=== PATIENT | male | born 1965 | race Caucasian/White ===

== ENCOUNTER → 2017-06-11 | Outpatient (CLI) | payer BC ==
[~2017-06-11] MED LIST: IOPAMIDOL (ISOVUE-300) 100 ML BTL ONE
== END ==
LOC: FIMAGING 11:02
PROVIDERS: ATTEND Family Medicine
DX: R16.1 Splenomegaly, not elsewhere classified (principal); D73.89 Other diseases of spleen; N20.0 Calculus of kidney
CPT/HCPCS: Q9967

== ENCOUNTER → 2017-06-18 | Outpatient (CLI) | payer BC | LOC: BMCIMAGING 11:27 | PROVIDERS: ATTEND Family Medicine | DX: R61 Generalized hyperhidrosis (principal); R53.81 Other malaise ==

== ENCOUNTER 2017-06-30 06:50 | Day surgery (SDC) | payer BC, OTHER ==
[2017-06-30] MEDS ORDERED: LIDOCAINE 1% 2 ML INJ ID PRN (07:06)
[2017-06-30] MEDS ORDERED: LR 1,000 ML IV ONE (07:06)
[2017-06-30] MEDS ORDERED: LIDOCAINE 1% 2 ML INJ ONE (07:08)
--- NOTE | 2017-06-30 08:13 | PDANEPAE ---
ANE History of Present Illness 52 yo M w non Hodgkins Lymphona here for chemo port placement ANE Past Medical History - Cardiovascular History Hx Hypertension: No Hx Arrhythmias: No Hx Chest Pain: No Hx Coronary Artery / Peripheral Vascular Disease: No Hx CHF / Valvular Disease: No Hx Palpitations: No Cardiovascular History Comment: HYPERLIPIDEMIA - Pulmonary History Hx COPD: No Hx Asthma/Reactive Airway Disease: Yes Hx Recent Upper Respiratory Infection: No Hx Oxygen in Use at Home: No Hx Sleep Apnea: Yes Sleep Apnea Screening Result - Last Documented: Positive Pulmonary History Comment: SLEEP APNEA POS W/CPAP - Neurologic History Hx Cerebrovascular Accident: No Hx Seizures: No Hx Dementia: No - Endocrine History Hx Diabetes: No - Renal History Hx Renal Disorders: No - Liver History Hx Hepatic Disorders: No - Neurological & Psychiatric Hx Hx Neurological and Psychiatric Disorders: No - Cancer History Hx Cancer: No Cancer History Comment: LYMPHOMA - Congenital Disorder History Hx Congenital Disorders: No - GI History Hx Gastrointestinal Disorders: Yes Gastrointestinal History Comment: EOSINOPHILIC ESOPHAGITIS - Other Health History Other Health History: GOUT - Chronic Pain History Chronic Pain: No - Surgical History Prior Surgeries: R SHOULDER. NASAL SURG ANE Review of Systems - Exercise capacity METS (RN): 4 METS ANE Patient History - Allergies Allergies/Adverse Reactions: Penicillins Allergy (Intermediate, Verified 12/11/15 00:18) - Home Medications Home Medications: ESCITALOPRAM OXALATE [Lexapro] 10 mg PO 03/17/11 [Last Taken Unknown] Fluticasone/Salmeter 250/50Mcg [Advair 250/50] 1 inh IH BID 03/17/11 [Last Taken Unknown] Allopurinol 06/29/17 [Last Taken Unknown] Atorvastatin Calcium 06/29/17 [Last Taken Unknown] Omeprazole 06/29/17 [Last Taken Unknown] Theophylline 06/29/17 [Last Taken Unknown] - NPO status NPO Status: no food or drink >8 hours NPO Since - Liquids (Date): 06/30/17 NPO Since - Liquids (Time): 05:30 NPO Since - Solids (Date): 06/29/17 - Anes Hx Anes Hx: no prior problems - Smoking Hx Smoking Status: Never smoked - Alcohol Use Alcohol Use: Rarely - Family Anes Hx Family Anes Hx: none Family Hx Anesthesia Complications: NEG ANE Labs/Vital Signs - Vital Signs Blood Pressure: 122/84 Heart Rate: 62 Respiratory Rate: 16 O2 Sat (%): 93 Height: 193.04 cm Weight: 97.522 kg ANE Physical Exam - Airway Neck exam: FROM Mallampati Score: Class 2 Mouth exam: normal dental/mouth exam - Pulmonary Pulmonary: no respiratory distress, clear to auscultation - Cardiovascular Cardiovascular: regular rate and rhythym, no murmur, rub, or gallop - ASA Status ASA Status: III ANE Anesthesia Plan Anesthesia Plan: GA w LMA
[2017-06-30] MEDS ORDERED: MIDAZOLAM 2 MG/2 ML VIAL IVP ONE (08:14)
[2017-06-30] MEDS ORDERED: BUPIVACAINE 0.5% 30 ML SDV ONE (08:27)
[2017-06-30] MEDS ORDERED: fentaNYL 100 MCG/2 ML INJ ONE ×2 (08:37→10:07)
[2017-06-30] MEDS ORDERED: LIDOCAINE 2% 100 MG/5 ML SYR ONE (08:37)
[2017-06-30] MEDS ORDERED: PROPOFOL 200 MG/20 ML VIAL ONE ×2 (08:37)
[2017-06-30] MEDS ORDERED: ceFAZolin 2 GM/DEXTROSE 100 ML IV ONE (08:38)
--- NOTE | 2017-06-30 08:44 | PDGENHP ---
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 Fatigue Pertinent Past, Social, Family History: gout, asthma, hyperlipidemia, sleep apnea, esophagitis. family history brother anticardiolipin antibody. social history - with a child age 4. No tobacco. Works in advertisiting Relevant Physical Exam: Pleasant well groom well nourished. NCAT, PER, No scleral icterus, mucous membranes moist,. Scar Left neck. CTAB no increased work of breathing. Regular rate. Will do port on right side. Risks, infection , bleeding, pneumothorax
--- NOTE | 2017-06-30 08:52 | POSTOPPROG ---
Post Op Note Date of Operation: 06/30/17 Surgeon: Clari Alberts Anesthesiologist: andrés Pre-op Diagnosis: Lymphoma Post-op Diagnosis: Lymphoma Indication: 52-year-old with lymphoma will start chemotherapy tomorrow Procedure: Right ultrasound-guided IJ port Inf/Abcess present in the surg proc area at time of surgery?: No EBL: Minimal Specimen(s): None
[2017-06-30] MEDS ORDERED: DEXAMETHASONE 4 MG/ML VIAL ONE (09:23)
[2017-06-30] MEDS ORDERED: ONDANSETRON 4 MG/2 ML VIAL ONE (09:23)
[2017-06-30] MEDS ORDERED: ACETAMINOPHEN 500 MG TAB PO PRN (09:50)
[2017-06-30] MEDS ORDERED: NALOXONE HCL 0.4 MG/ML INJ IVP PRN (09:50)
[2017-06-30] MEDS ORDERED: OXYCODONE/APAP 5/325 TAB PO PRN (09:50)
[2017-06-30] MEDS: fentaNYL 100 MCG/2 ML INJ IVP PRN ×3 (10:12→11:09)
[2017-06-30] MEDS ORDERED: OXYCODONE/APAP 5/325 TAB ONE (11:06)
[2017-06-30 11:19] VITALS: TEMP 97.9
[2017-06-30 11:24] VITALS: BP 123/83; PULSE 79; RESP 13; O2SAT 96
--- NOTE | 2017-06-30 21:13 | POSTANESTH ---
Post Anesthetic Evaluation Cardiovascular Status: Normal, Stable, Similar to Pre-Op Cond Respiratory Status: Normal, Stable, Similar to Pre-op Cond. Level of Consciousness/Mental Status: Can Participate in Eval, Alert and Oriented Pain Control: Adequate, Prn Tx Ordered Nausea/Vomiting Control: Adequate, Prn Tx Ordered Complications Possibly Related to Anesthesia: None Noted
== END 2017-06-30 11:40 | disposition home or self-care (01) ==
LOC: FSGY 06:50
PROVIDERS: ATTEND Surgery
DX: Z45.2 Encounter for adjustment and management of vascular access device (principal); C85.90 Non-Hodgkin lymphoma, unspecified, unspecified site; J45.909 Unspecified asthma, uncomplicated; G47.30 Sleep apnea, unspecified; E78.5 Hyperlipidemia, unspecified; Z88.0 Allergy status to penicillin
CPT/HCPCS: C1788; J0690; J1100; J1642; J2001; J2250; J2405; J2704; J3010

== ENCOUNTER → 2017-07-25 | Outpatient (CLI) | payer BC | LOC: FIMAGING 15:49 | PROVIDERS: ATTEND Family Medicine | DX: K40.90 Unilateral inguinal hernia, without obstruction or gangrene, not specified as recurrent (principal); N50.3 Cyst of epididymis; R10.31 Right lower quadrant pain ==

== ENCOUNTER 2017-10-28 09:12 | Day surgery (SDC) | payer BC ==
[~2017-10-28 09:12] MED LIST changes: -IOPAMIDOL (ISOVUE-300) 100 ML BTL ONE; +VANCOMYCIN 1.5 GM in D5W 250 ML IV ONE
[2017-10-28] MEDS ORDERED: VANCOMYCIN PHARMACY TO DOSE MISC ONE (09:23)
[2017-10-28] MEDS ORDERED: LR 1,000 ML IV ONE (09:25)
[2017-10-28] MEDS ORDERED: LIDOCAINE 1% 2 ML INJ ID PRN (09:25)
[2017-10-28] MEDS ORDERED: MIDAZOLAM 2 MG/2 ML VIAL IVP ONE (12:38)
--- NOTE | 2017-10-28 12:39 | PDANEPAE ---
ANE History of Present Illness here for lap RIH repair and port removal ANE Past Medical History - Cardiovascular History Hx Hypertension: No Hx Arrhythmias: No Hx Chest Pain: No Hx Coronary Artery / Peripheral Vascular Disease: No Hx CHF / Valvular Disease: No Hx Palpitations: No Cardiovascular History Comment: HYPERLIPIDEMIA - Pulmonary History Hx COPD: No Hx Asthma/Reactive Airway Disease: Yes Hx Recent Upper Respiratory Infection: No Hx Oxygen in Use at Home: No Hx Sleep Apnea: Yes Sleep Apnea Screening Result - Last Documented: Positive Pulmonary History Comment: SLEEP APNEA POS W/CPAP, asthma - Neurologic History Hx Cerebrovascular Accident: No Hx Seizures: No Hx Dementia: No - Endocrine History Hx Diabetes: No - Renal History Hx Renal Disorders: No - Liver History Hx Hepatic Disorders: No - Neurological & Psychiatric Hx Hx Neurological and Psychiatric Disorders: No - Cancer History Hx Cancer: Yes Cancer History Comment: LYMPHOMA - Congenital Disorder History Hx Congenital Disorders: No - GI History Hx Gastrointestinal Disorders: Yes Gastrointestinal History Comment: EOSINOPHILIC ESOPHAGITIS - Other Health History Other Health History: GOUT - Chronic Pain History Chronic Pain: No - Surgical History Prior Surgeries: R SHOULDER. NASAL SURG ANE Review of Systems Review of systems is: negative Review of Systems: - Exercise capacity Exercise capacity: >=4 METS METS (RN): 4 METS ANE Patient History - Allergies Allergies/Adverse Reactions: Penicillins Allergy (Intermediate, Verified 10/28/17 09:49) - Home Medications Home medications: home medication list seen and reviewed Home Medications: ESCITALOPRAM OXALATE [Lexapro] 10 PO DAILY 03/17/11 [Last Taken 1 Day Ago ~10/27] Fluticasone/Salmeter 250/50Mcg [Advair 250/50] PO DAILY 03/17/11 [Last Taken 1 Day Ago ~10/27/17] Allopurinol 300 PO DAILY 06/29/17 [Last Taken 1 Day Ago ~10/27/17] Atorvastatin Calcium 20 PO DAILY 06/29/17 [Last Taken 1 Day Ago ~10/27/17] Omeprazole 20 PO DAILY 06/29/17 [Last Taken 1 Day Ago ~10/27/17] Theophylline 300 PO DAILY 06/29/17 [Last Taken 1 Day Ago ~10/27/17 300] - NPO status NPO Since - Liquids (Date): 10/28/17 NPO Since - Liquids (Time): 06:00 NPO Since - Solids (Date): 10/27/17 NPO Since - Solids (Time): 23:00 - Smoking Hx Smoking Status: Never smoked - Family Anes Hx Family Hx Anesthesia Complications: none ANE Labs/Vital Signs - Vital Signs Vital Signs: reviewed preoperatively; see RN documention for details Blood Pressure: 131/86 Heart Rate: 65 Respiratory Rate: 18 O2 Sat (%): 95 Height: 193.04 cm Weight: 99.79 kg ANE Physical Exam - Airway Neck exam: FROM Mallampati Score: Class 1 - Pulmonary Pulmonary: no respiratory distress - Cardiovascular Cardiovascular: regular rate and rhythym - ASA Status ASA Status: II ANE Anesthesia Plan Anesthesia Plan: general endotracheal anesthesia
--- NOTE | 2017-10-28 13:03 | PDHPUP ---
History & Physical Update H&P update statement: This history and physical update is based on an assessment of the patient which was completed after admission or registration (within 24 hours), but prior to the surgery/procedure. H&P update: H&P reviewed & patient examined, no change in patient's condition since H&P completed
[2017-10-28] MEDS ORDERED: BUPIVACAINE 0.5% 30 ML SDV ONE (13:18)
[2017-10-28] MEDS ORDERED: fentaNYL 100 MCG/2 ML INJ ONE ×2 (13:20→13:21)
[2017-10-28] MEDS ORDERED: PROPOFOL/EMULSION 500 MG/50 ML BOTTLE IV ONE (13:21)
[2017-10-28] MEDS ORDERED: HYDROmorphONE/DILAUDID 1 MG/ML INJ IVP PRN (14:29)
[2017-10-28] MEDS ORDERED: NALOXONE HCL 0.4 MG/ML INJ IVP PRN (14:29)
[2017-10-28] MEDS ORDERED: fentaNYL 100 MCG/2 ML INJ IVP PRN (14:29)
[2017-10-28] MEDS ORDERED: ALBUTEROL 3 ML DEYVIAL IH PRN (14:29)
[2017-10-28] MEDS ORDERED: DEXAMETHASONE 4 MG/ML VIAL IVP PRN (14:29)
[2017-10-28] MEDS ORDERED: LR 500 ML IV PRN (14:29)
[2017-10-28] MEDS ORDERED: SUGAMMADEX SODIUM 200 MG/2 ML VIAL IVP ONE (14:36)
[2017-10-28 15:05] VITALS: TEMP 97.2
[2017-10-28 15:34] VITALS: RESP 7
[2017-10-28 15:44] VITALS: PULSE 79; O2SAT 95
[2017-10-28 15:49] VITALS: BP 117/81
--- NOTE | 2017-10-28 17:53 | POSTANESTH ---
Post Anesthetic Evaluation Cardiovascular Status: Normal, Stable Respiratory Status: Normal, Stable Level of Consciousness/Mental Status: Can Participate in Eval, Moderately Sleepy Pain Control: Adequate, Prn Tx Ordered Nausea/Vomiting Control: Adequate, Prn Tx Ordered Complications Possibly Related to Anesthesia: None Noted
--- NOTE | 2017-11-09 09:32 | GOP ---
[f rep st] OPERATIVE REPORT DATE OF OPERATION: 10/28/2017 SURGEON: Clari Alberts MD ANESTHESIOLOGIST: Dr. Kerwin Bryan. PREOPERATIVE DIAGNOSIS: 1. Right inguinal hernia. 2. PowerPort, completed treatment. POSTOPERATIVE DIAGNOSIS: 1. Right inguinal hernia. 2. PowerPort, completed treatment. PROCEDURE PERFORMED: 1. Laparoscopic right inguinal hernia repair with mesh. 2. Removal of PowerPort. FINDINGS: SPECIMENS: None. ESTIMATED BLOOD LOSS: 10 cc. INDICATIONS: The patient is a 52-year-old who completed treatment for lymphoma. He also has a right inguinal hernia. He presents for inguinal hernia repair and removal of PowerPort. DESCRIPTION OF PROCEDURE: The patient was brought into the operating room, placed supine on the table, and general anesthesia was administered. His chest and abdomen and groin were prepped and draped in the usual sterile fashion. I infiltrated the area over his PowerPort. I dissected down to the PowerPort and excised it. Hemostasis was achieved in the cavity. I closed the pocket with 3- 0 Vicryl followed by 4-0 Monocryl. Dermabond applied. I infiltrated all sites with 0.5% Marcaine prior to making incisions on his abdomen. I made an incision beneath his umbilicus. I dissected down through the subcutaneous tissues. I encountered the anterior rectus sheath. I divided this. I created a preperitoneal space. I inserted a balloon-tipped trocar directed toward the pubis. I performed hand insufflation with the camera in place. I visualized the pubic tubercle. I then removed this balloon and inserted the working balloon. He was placed in the Trendelenburg position. I placed a 5 mm suprapubic trocar and a 5 mm trocar between the 1st and 2nd trocars. I cleared away the pubis including Kip ligament. I identified the epigastric vessels, keeping them anterior to the plane and created a space laterally. I reduced the hernia. There was no evidence of femoral hernia. I placed a piece of laparoscopic self-fixating ProGrip mesh and unrolled this to cover the direct, indirect, and femoral spaces. I tacked this with an AbsorbaTack to the pubis, as well as anteriorly. I explored the left side and no hernia was noted. I removed the trocars and allowed the preperitoneal space to desufflate. I closed the fascia with 0 Vicryl. I closed skin with 4-0 Monocryl, Dermabond applied. Patient was awakened in the operating room, extubated, transferred to PACU in stable condition. /[id number]/MODL MTDD
== END 2017-10-28 16:27 | disposition home or self-care (01) ==
LOC: FSGY 09:12
PROVIDERS: ATTEND Surgery
DX: K40.90 Unilateral inguinal hernia, without obstruction or gangrene, not specified as recurrent (principal); Z45.1 Encounter for adjustment and management of infusion pump
CPT/HCPCS: C1727; C1781; J2250; J2704; J3010; J3370